=== PATIENT | female | born 1995 | race Caucasian/White ===

== ENCOUNTER 2017-02-20 12:48 | Emergency (ER) | payer MEDICAID ==
--- NOTE | 2017-02-20 13:23 | ED Physician Chart ---
Chief Complaint/HPI - Patient Information Date Seen:: 02/20/17 Time Seen:: 13:10 Chief Complaint:: left shoulder pain History of Present Illness:: This morning patient was going up stairs and slipped and fell striking her left shoulder on one of the steps. She denies other injuries. Patient is right hand dominant. Allergies:: Allergies Allergy/AdvReac Type Severity Reaction Status Date / Time No Known Allergies Allergy Verified 02/20/17 13:09 Vitals:: Vital Signs - 8 hr 02/20/17 12:48 Temp 99.1 F HR 86 RR 16 BP 114/66 O2 Sat % 100 Historian:: Patient Review:: Nurse's Note Reviewed Review of Systems - Review of Systems General/Constitutional: No fever, No chills Skin: No skin lesions Head: No headache Eyes: No loss of vision ENT: No earache Neck: No neck pain Cardio Vascular: No chest pain, No palpitations Pulmonary: No SOB GI: No nausea, No vomiting G/U: No dysuria, No frequency Musculoskeletal: Bone or joint pain Psychiatric: No prior psych history, No depression, No anxiety Hematopoietic: No bruising, No lymphadenopathy Allergic/Immuno: No urticaria, No angioedema Neurological: No syncope, No focal symptoms Past Medical History - Past Medical History Past Medical History: No significant medical hx Family History: Diabetes Melitus Social History: Non Smoker, No Alcohol Surgical History: None Psychiatricy History: None Medication: None Family Medical History - Family Member Grandfather Other Medical History: liver CA Physical Exam - Physical Examination General/Constitutional: Well-developed, well-nourished, Alert Head: Atraumatic Eyes: Lids, conjuctiva normal Skin: Nl inspection ENMT: External ears, nose nl, TM canals nl, Oropharynx nl, Tonsils nl Neck: No nuchal rigidity Respiratory: Clear to Auscultation Cardio Vascular: RRR GI: No tenderness/rebounding/guarding Other Extremities comments:: left shoulder: tenderness of medial humeral head; no clavicular tenderness Neuro/Psych: Alert/oriented, No focal deficits Misc: Normal back Labs/Radiology/EKG Results - Radiology Results Results: x-ray left shoulder negative for fracture. ED Septic Shock - . Is Septic Shock (SBP<90, OR Lactate>4 mmol\L) present?: No - <6hrs of presentation: Vital Signs: Vital Signs - 8 hr 02/20/17 12:48 Temp 99.1 F HR 86 RR 16 BP 114/66 O2 Sat % 100 Reassessment (Disposition) - Reassessment Reassessment Condition:: Unchanged - Diagnosis Diagnosis:: contusion left shoulder - Aftercare/Follow up Instructions Aftercare/Follow-Up Instructions:: Refer to Discharge Instructions - Patient Disposition Discharge/Transfer:: Home Condition at Disposition:: Stable, Unchanged
--- NOTE | 2017-02-20 13:57 | Diagnostic Imaging Report ---
Left shoulder (2 views) HISTORY: Pain, trauma No acute bony abnormalities. No fractures. No dislocation. IMPRESSION: No acute abnormalities
== END 2017-02-20 14:10 | disposition home or self-care (01) ==
LOC: ER 12:48
DX: S40.012A Contusion of left shoulder, initial encounter (principal); W01.0XXA Fall on same level from slipping, tripping and stumbling without subsequent striking against object, initial encounter; Y93.89 Activity, other specified; Y92.89 Other specified places as the place of occurrence of the external cause; Y99.8 Other external cause status
CPT/HCPCS: 73030-TC-LT; 81025-TC